=== PATIENT | female | born 1985 | race Two or more races ===

== ENCOUNTER 2019-04-09 12:40 | Emergency (ER) | payer SELFPAY ==
[~2019-04-09] VITALS: Ht 162.6 cm; Wt 86.2 kg
[2019-04-09 14:05] VITALS: BP 124/68
--- NOTE | 2019-04-09 14:13 | PHYS DOC ---
Past Medical History Past Medical History: No Pertinent History Past Surgical History: No Surgical History Alcohol Use: Occasionally Drug Use: None Adult General Chief Complaint Chief Complaint: ABDOMINAL PAIN IN HPI HPI Patient is a 33 year old female who presents with abdominal pain, nausea, vomiting this been ongoing since yesterday. The patient states she's level weeks . She states her pain 7 out of 10 in severity and sharp. Denies any vaginal bleeding. [id number] Review of Systems Review of Systems Constitutional: Denies fever or chills [] Eyes: Denies change in visual acuity, redness, or eye pain [] HENT: Denies nasal congestion or sore throat [] Respiratory: Denies cough or shortness of breath [] Cardiovascular: No additional information not addressed in HPI [] GI: Reports abdominal pain, nausea, Denies vomiting, bloody stools or diarrhea [] : Denies dysuria or hematuria [] Musculoskeletal: Denies back pain or joint pain [] Integument: Denies rash or skin lesions [] Neurologic: Denies headache, focal weakness or sensory changes [] Endocrine: Denies polyuria or polydipsia [] Complete systems were reviewed and found to be within normal limits, except as documented in this note. Current Medications Current Medications Current Medications Medications (Trade) Dose Ordered Sig/Darline Start Time Stop Time Status Last Admin Dose Admin Ondansetron HCl (Zofran) 4 mg 1X ONCE 04/09/19 14:15 04/09/19 14:16 DC 04/09/19 14:45 4 MG Sodium Chloride 1,000 ml @ 1,000 mls/hr 1X ONCE 04/09/19 14:15 04/09/19 15:14 DC 04/09/19 14:45 1,000 MLS/HR Allergies Allergies Allergies Coded Allergies Type Severity Reaction Last Updated Verified No Known Drug Allergies 10/13/13 No Physical Exam Physical Exam Constitutional: Well developed, well nourished, no acute distress, non-toxic appearance. [] HENT: Normocephalic, atraumatic, bilateral external ears normal, oropharynx moist, no oral exudates, nose normal. [] Eyes: PERRLA, EOMI, conjunctiva normal, no discharge. [] Neck: Normal range of motion, no tenderness, supple, no stridor. [] Cardiovascular:Heart rate regular rhythm, no murmur [] Lungs & Thorax: Bilateral breath sounds clear to auscultation [] Abdomen: Bowel sounds normal, soft, periumbilical abdominal tenderness, no masses, no pulsatile masses. [] Skin: Warm, dry, no erythema, no rash. [] Back: No tenderness, no CVA tenderness. [] Extremities: No tenderness, no cyanosis, no clubbing, ROM intact, no edema. [] Neurologic: Alert and oriented X 3, normal motor function, normal sensory function, no focal deficits noted. [] Psychologic: Affect normal, judgement normal, mood normal. [] Current Patient Data Lab Values Laboratory Tests Test 04/09/19 14:02 04/09/19 14:15 Urine Collection Type Unknown Urine Color Yellow Urine Clarity Clear Urine pH 6.5 Urine Specific [place] 1.010 Urine Protein Negative mg/dL (NEG-TRACE) Urine Glucose (UA) Negative mg/dL (NEG) Urine Ketones (Stick) Negative mg/dL (NEG) Urine Blood Negative (NEG) Urine Nitrite Negative (NEG) Urine Bilirubin Negative (NEG) Urine Urobilinogen Dipstick 0.2 mg/dL (0.2 mg/dL) Urine Leukocyte Esterase Small (NEG) Urine RBC 0 /HPF (0-2) Urine WBC 1-4 /HPF (0-4) Urine Squamous Epithelial Cells Many /LPF Urine Bacteria Moderate /HPF (0-FEW) Urine Mucus Mod /LPF Urine Trichomonas Present White Blood Count 9.4 x10^3/uL (4.0-11.0) Red Blood Count 4.03 x10^6/uL (3.50-5.40) Hemoglobin 13.0 g/dL (12.0-15.5) Hematocrit 37.5 % (36.0-47.0) Mean Corpuscular Volume 93 fL (79-100) Mean Corpuscular Hemoglobin 32 pg (25-35) Mean Corpuscular Hemoglobin Concent 35 g/dL (31-37) Red Cell Distribution Width 12.7 % (11.5-14.5) Platelet Count 268 x10^3/uL (140-400) Neutrophils (%) (Auto) 70 % (31-73) Lymphocytes (%) (Auto) 22 % (24-48) L Monocytes (%) (Auto) 6 % (0-9) Eosinophils (%) (Auto) 1 % (0-3) Basophils (%) (Auto) 1 % (0-3) Neutrophils # (Auto) 6.6 x10^3/uL (1.8-7.7) Lymphocytes # (Auto) 2.1 x10^3/uL (1.0-4.8) Monocytes # (Auto) 0.5 x10^3/uL (0.0-1.1) Eosinophils # (Auto) 0.1 x10^3/uL (0.0-0.7) Basophils # (Auto) 0.1 x10^3/uL (0.0-0.2) Maternal Serum HCG Beta Subunit 24116 mIU/mL (0-5) H Sodium Level 138 mmol/L (136-145) Potassium Level 3.9 mmol/L (3.5-5.1) Chloride Level 102 mmol/L (98-107) Carbon Dioxide Level 25 mmol/L (21-32) Anion Gap 11 (6-14) Blood Urea Nitrogen 5 mg/dL (7-20) L Creatinine 0.6 mg/dL (0.6-1.0) Estimated GFR (Cockcroft-Gault) 114.4 BUN/Creatinine Ratio 8 (6-20) Glucose Level 90 mg/dL (70-99) Calcium Level 8.9 mg/dL (8.5-10.1) Total Bilirubin 0.2 mg/dL (0.2-1.0) Aspartate Amino Transferase (AST) 13 U/L (15-37) L Alanine Aminotransferase (ALT) 18 U/L (14-59) Alkaline Phosphatase 58 U/L (46-116) Total Protein 7.4 g/dL (6.4-8.2) Albumin 3.7 g/dL (3.4-5.0) Albumin/Globulin Ratio 1.0 (1.0-1.7) Laboratory Tests 04/09/19 14:15 Laboratory Tests 04/09/19 14:15 EKG EKG [] Radiology/Procedures Radiology/Procedures [][facility] [address] [place], [place] [id number] IMAGING REPORT Signed PATIENT: KAYLA KENDRICK ACCOUNT: [id number] : 1985 LOCATION: ER AGE: 33 SEX: F EXAM STATUS: REG ER ORD. PHYSICIAN: KLEVER DEAN APRN REASON: abdominal pain, 11 weeks preg PROCEDURE: OB < 14 WKS EXAM: Obstetrics sonogram. HISTORY: Pain. TECHNIQUE: Sonographic imaging of the pelvis was performed. COMPARISON: None. FINDINGS: There is a single intrauterine gestational sac with pole and yolk sac. The crown-rump length is 1.07 cm, corresponding with a gestational age of 7 weeks and 1 day and due date is 11/25/2019. The heart rate is normal at 158 bpm. The cervix is long and closed. The uterus is normal in size. The ovaries are unremarkable. No pelvic free fluid is seen. The gestational sac is normal in configuration and location. The anatomic fluid volume is grossly normal. IMPRESSION: Single intrauterine fetus with an estimated gestational age of 7 weeks and 1 day and heart rate of 158 bpm. Electronically signed by: Ursula Worthington MD (04/09/2019 2:56 PM) [facility] DICTATED and SIGNED BY: URSULA WORTHINGTON MD DATE: 04/09/19 1456 Course & Med Decision Making Course & Med Decision Making Pertinent Labs and Imaging studies reviewed. (See chart for details) Will get labs, ultrasound, and give supportive care. Labs are unremarkable. Urine shows leukocytes will treat with keflex. IMPRESSION: Single intrauterine fetus with an estimated gestational age of 7 weeks and 1 day and heart rate of 158 bpm. Dragon Disclaimer Dragon Disclaimer This electronic medical record was generated, in whole or in part, using a voice recognition dictation system. Departure Departure Impression: Primary Impression: Urinary tract infection Disposition: 01 HOME, SELF-CARE Condition: STABLE Referrals: NO PCP (PCP) Patient Instructions: - Urinary Tract Infection Additional Instructions: Thank you for visiting [facility]. We appreciate you trusting us with your care. If any additional problems come up don't hesitate to return to visit us. Please follow up with your primary care provider so they can plan additional care if needed and know about the problem that you had. If symptoms worsen come back to the Emergency Department. Any concerning symptoms that start such as chest pain, shortness of air, weakness or numbness on one side of the body, running high fevers or any other concerning symptoms return to the ER. You have been prescribed an antibiotic today to help fight your infection. Pl ease take all of the antibiotic as directed. If after 48 hours the infection is not improving, please return for more care. If the infection worsens, return to ER for additional care. Scripts Cephalexin (KEFLEX) 500 Mg Capsule 1 CAP PO BID for 7 Days, #14 CAP 0 Refills Prov: KLEVER DEAN APRN 04/09/19 Problem Qualifiers Primary Impression: Urinary tract infection Urinary tract infection type: acute cystitis Hematuria presence: without hematuria Qualified Codes: N30.00 - Acute cystitis without hematuria KLEVER DEAN APRN Apr 09, 2019 14:13
[2019-04-09 14:15] LABS: BILIRUBIN,URINE NEGATIVE (NEG); CLARITY,URINE CLEAR; COLOR,URINE YELLOW; NITRITE,URINE NEGATIVE (NEG); PH,URINE 6.5; PROTEIN,URINE NEGATIVE (NEG-TRACE); UROBILINOGEN,URINE 0.2 mg/dL (0.2 mg/dL)
[2019-04-09] MEDS ORDERED: IV NORMAL SALINE 1000ML BAG 1,000 ML IV ONE (14:15)
[2019-04-09] MEDS ORDERED: ONDANSETRON PF 4 MG/2 ML VIAL. IV ONE (14:15)
[2019-04-09 14:25] LABS: BASO # 0.1 x10^3/uL (0.0-0.2); BASO % 1 % (0-3); EOS # 0.1 x10^3/uL (0.0-0.7); EOS % 1 % (0-3); HEMATOCRIT 37.5 % (36.0-47.0); LYMPH # 2.1 x10^3/uL (1.0-4.8); LYMPH % 22 % (24-48); MEAN CORPUSCULAR HEMOGLOBIN 32 pg (25-35); MEAN CORPUSCULAR HGB CONC 35 g/dL (31-37); MEAN CORPUSCULAR VOLUME 93 fL (79-100); MONO # 0.5 x10^3/uL (0.0-1.1); MONO % 6 % (0-9); NEUT # 6.6 x10^3/uL (1.8-7.7); NEUT % 70 % (31-73); PLATELET COUNT 268 x10^3/uL (140-400); RED BLOOD COUNT 4.03 x10^6/uL (3.50-5.40); RED CELL DISTRIBUTION WIDTH 12.7 % (11.5-14.5); WHITE BLOOD COUNT 9.4 x10^3/uL (4.0-11.0)
[2019-04-09 14:41] LABS: BACTERIA,URINE MODERATE /HPF (0-FEW); RBC,URINE 0 /HPF (0-2); SQUAMOUS EPITHELIAL CELL,UR MANY /LPF; TRICHOMONAS,URINE PRESENT
[2019-04-09 14:43] LABS: CALCIUM 8.9 mg/dL (8.5-10.1); CREATININE 0.6 mg/dL (0.6-1.0); GFR 114.4; POTASSIUM 3.9 mmol/L (3.5-5.1)
[2019-04-09 14:48] LABS: ALBUMIN 3.7 g/dL (3.4-5.0); TOTAL BILIRUBIN 0.2 mg/dL (0.2-1.0); TOTAL PROTEIN 7.4 g/dL (6.4-8.2)
--- NOTE | 2019-04-09 14:59 | RAD ---
EXAM: Obstetrics sonogram. HISTORY: Pain. TECHNIQUE: Sonographic imaging of the pelvis was performed. COMPARISON: None. FINDINGS: There is a single intrauterine gestational sac with pole and yolk sac. The crown-rump length is 1.07 cm, corresponding with a gestational age of 7 weeks and 1 day and due date is 11/25/2019. The heart rate is normal at 158 bpm. The cervix is long and closed. The uterus is normal in size. The ovaries are unremarkable. No pelvic free fluid is seen. The gestational sac is normal in configuration and location. The anatomic fluid volume is grossly normal. IMPRESSION: Single intrauterine fetus with an estimated gestational age of 7 weeks and 1 day and heart rate of 158 bpm. Electronically signed by: Ursula Paredes MD (04/09/2019 2:56 PM) [facility]
[2019-04-09] MEDS ORDERED: CEPH-264 PO (15:22)
== END 2019-04-09 15:36 | disposition home or self-care (01) ==
LOC: ER 12:40
DX: O23.11 Infections of bladder in pregnancy, first trimester (principal); O21.9 Vomiting of pregnancy, unspecified; Z3A.11 11 weeks gestation of pregnancy
CPT/HCPCS: 36415; 76801; 80053; 81001; 84702; 85025; 86900; 86901; 87086; 96361; 96374; 99285; J2405; J7030

== ENCOUNTER 2019-09-18 17:42 | Observation (INO) | payer OTHER ==
[2019-05-18 03:25] VITALS: BP 148/81
[~2019-09-18 17:42] MED LIST: CEPH-264 PO
[2019-09-18] MEDS ORDERED: IV RINGERS,LACTATED 1000ML 1,000 ML IV SCH (17:43)
== END 2019-09-18 19:00 | disposition home or self-care (01) ==
LOC: 3 SO LND 17:42
PROVIDERS: ADMIT Obstetrics & Gynecology; ATTEND Obstetrics & Gynecology
DX: O9A.213 Injury, poisoning and certain other consequences of external causes complicating pregnancy, third trimester (principal); O26.893 Other specified pregnancy related conditions, third trimester; N64.4 Mastodynia; R10.9 Unspecified abdominal pain; Z3A.31 31 weeks gestation of pregnancy; W10.8XXA Fall (on) (from) other stairs and steps, initial encounter; Y93.89 Activity, other specified; Y92.89 Other specified places as the place of occurrence of the external cause; Y99.8 Other external cause status
CPT/HCPCS: G0378; G0379

== ENCOUNTER 2019-10-19 07:51 | Inpatient (IN) | payer OTHER ==
[~2019-10-19] VITALS: Ht 162.6 cm; Wt 108.9 kg
[2019-10-19] MEDS ORDERED: BETAMET ACET&NA PHOS 30 MG/5 ML VIAL. IM STA (08:17)
[2019-10-19] MEDS ORDERED: IV NORMAL SALINE 1000ML BAG 1,000 ML IV SCH ×2 (08:17)
[2019-10-19] MEDS ORDERED: IV RINGERS,LACTATED 1000ML 1,000 ML IV SCH (08:17)
[2019-10-19 08:39] LABS: RED BLOOD COUNT 3.56 x10^6/uL (3.50-5.40); RED CELL DISTRIBUTION WIDTH 14.5 % (11.5-14.5); WHITE BLOOD COUNT 8.6 x10^3/uL (4.0-11.0)
--- NOTE | 2019-10-19 09:36 | PDOC1 ---
OB - History Hx of Present Care: Good Care Ultrasounds: Abnormal US findings (placenta previa) Obstetrical Complications: Other (placenta previa) Medical Complications: None Past Family/Social History * Past Medical, Surgical, Family and Obstetric Histories reviewed from chart. Rubella: Immune RPR/VDRL: Negative GBS Status: Unknown HBsAG: Negative OB - Chief Complaint & HPI Date of Admission: Date of Admission: Oct 19, 2019 at 07:51 Chief Complaint/History : 3 Para: 1 EGA: 35 Reason for admission: active labor, vaginal bleeding (placenta previa) Admission Nurse Assessment Rev: Yes OB - Admission Exam Physical Exam HEENT: Normal Heart: Regular Rate Lungs: Clear Abdomen: Gravid, Non tender, Soft Extremities: Edema Reflexes: Normal Membranes: Intact Accelerations: Accelerations Present Decelerations: No decelerations Contractions on Admission: >10 Minutes Apart Intensity: Mild Text A: 35 wks IUP Placenta Previa Vaginal bleeding P: Admit for emergency c/s. Give Betamethasone for lung maturity. Type and cross 2 Units PRBC's. JESSICA MASON Jr, MD Oct 19, 2019 09:36
[2019-10-19 09:41] LABS: BILIRUBIN,URINE NEGATIVE (NEG); NITRITE,URINE NEGATIVE (NEG); PROTEIN,URINE 30 mg/dL (NEG-TRACE); UROBILINOGEN,URINE 0.2 mg/dL (0.2 mg/dL)
[2019-10-19 09:54] LABS: BACTERIA,URINE FEW /HPF (0-FEW); RBC,URINE >40 /HPF (0-2); SQUAMOUS EPITHELIAL CELL,UR OCC /LPF
[2019-10-19 09:56] LABS: CLARITY,URINE CLOUDY; COLOR,URINE AMBER
[2019-10-19] MEDS ORDERED: CITRIC ACID/SODIUM CITRATE 30 ML SOLUTION. PO ONE (10:00)
[2019-10-19] MEDS ORDERED: FAMOTIDINE 20 MG/2 ML VIAL ONE (10:12)
[2019-10-19] MEDS ORDERED: fentaNYL PF VIAL 100 MCG/2 ML VIAL ONE (10:12)
[2019-10-19] MEDS ORDERED: MORPHINE PF 10 MG/10 ML AMPUL. ONE (10:12)
[2019-10-19] MEDS ORDERED: ONDANSETRON PF 4 MG/2 ML VIAL. ONE (10:12)
[2019-10-19] MEDS ORDERED: METOCLOPRAMIDE HCL 10 MG/2 ML VIAL. ONE ×2 (10:12→11:11)
[2019-10-19] MEDS ORDERED: OXYTOCIN 10 UNIT/ML VIAL. ONE (10:58)
--- NOTE | 2019-10-19 11:38 | PDOC4 ---
OB Operative Note Date: Oct 19, 2019 PRE OP DIAGNOSIS: Other (Placenta previa) POST OP DIAGNOSIS: Other (Same) OPERATION PERFORMED: L [facility] Surgeon Dr. Cannon Anesthesia: Regional (Spinal) Blood Loss 700 ml Specimen placenta and infant OB Findings: Position (Vertex), Sex (Female), (8/9), Weight (2675 Gram) Complications none Additional Remarks pt. JESSICA Mi Jr, MD Oct 19, 2019 11:38
[2019-10-19] MEDS ORDERED: MAG HYDROX/ALUMINUM HYD/SIMETH 30 ML ORAL.SUSP PO PRN (11:45)
[2019-10-19] MEDS ORDERED: 0.9 % SODIUM CHLORIDE 10 ML DISP.SYRIN. IV PRN (11:45)
[2019-10-19] MEDS ORDERED: OXYTOCIN 30 UNIT/500 ML PREMIX 500 ML IV PRN (11:45)
[2019-10-19] MEDS ORDERED: ONDANSETRON PF 4 MG/2 ML VIAL. IV PRN (11:45)
[2019-10-19] MEDS ORDERED: ZOLPIDEM 5 MG TABLET. PO PRN (11:45)
[2019-10-19] MEDS ORDERED: SIMETHICONE 80 MG TAB.CHEW PO PRN (11:45)
[2019-10-19] MEDS ORDERED: diphenhydrAMINE ORAL ELIXIR 12.5 MG/5 ML ML PO PRN (11:45)
--- NOTE | 2019-10-19 12:27 | OP ---
DATE OF SURGERY: 10/19/2019 PREOPERATIVE DIAGNOSES: 1. A 35 and 4/7 weeks intrauterine . 2. Placenta previa with vaginal bleeding. POSTOPERATIVE DIAGNOSES: 1. A 35 and 4/7 weeks intrauterine . 2. Placenta previa with vaginal bleeding. PROCEDURE: Primary low transverse section. SURGEON: Jessica Cannon MD ANESTHESIA: Spinal. ESTIMATED BLOOD LOSS: 700 mL. COMPLICATIONS: None. FINDINGS: Viable female , Apgars 8 and 9, weight 2675 grams. Three-vessel cord placenta delivered manually. SUMMARY: A 34-year-old 3, para 1 at 35 and 4/7 weeks intrauterine , presented to Labor and Delivery with vaginal bleeding with known placenta previa. The patient was counseled on risks, benefits and expectations of section and voiced clear understanding to proceed. DESCRIPTION OF PROCEDURE: The patient was taken to surgery suite and placed in dorsal supine position. She was prepped with ChloraPrep and draped in sterile fashion. After adequate anesthesia, Pfannenstiel skin incision was made with scalpel down to and through the fascia. The fascia was extended laterally using curved Strauss scissors. The superior edge of fascia was grasped with two Dianna clamps and dissected free of the abdominal rectus muscles using blunt dissection along with Bovie cautery. The same process took place inferiorly. Abdominal rectus muscle dissected bluntly at the midline. Peritoneum was grasped with 2 hemostats and entered sharply with Metzenbaum scissors. This incision was extended superiorly as well as inferiorly. The Mike ring retractor was then placed. Low transverse hysterotomy incision was made with a scalpel down to the amniotic sac. Hysterotomy incision was extended laterally and superiorly digitally. Amniotomy was performed with Allis clamp, which elicited moderate amount of clear fluid. With the aid of fundal pressure, the 's head was delivered in a smooth atraumatic manner. With additional fundal pressure, the anterior shoulder delivered followed by posterior shoulder and rest of the female infant was delivered. Infant was then suctioned with bulb syringe orally and nasally, umbilical cord blood was then obtained. Three-vessel cord placenta was delivered manually. The uterus was then exteriorized and cleared of clot and debris with a moist lap. The hysterotomy incision was reapproximated using #1 Vicryl suture in running locked fashion. Mcnika-dc-[id number] sutures were placed on the left apex of the hysterotomy incision for better hemostasis. Uterus palpated firm. Fallopian tubes and ovaries appeared normal bilaterally. Posterior cul-de-sac was cleared of clot and debris with moist lap. The uterus was then returned to the abdomen. The pericolic gutters were cleared of clot and debris with moist lap. Hysterotomy incision was reviewed and was hemostatic. The Mike ring retractor was removed. The peritoneum was reapproximated using #1 Vicryl suture in running fashion. The abdominal rectus muscle was reapproximated using #1 Vicryl suture in running fashion. The fascia was reapproximated using 0 Vicryl suture in running fashion. Skin was reapproximated using 4-0 Vicryl suture in subcuticular manner. The patient tolerated the procedure well and was taken to recovery room in stable condition. Sponge and needle count correct x 3. JESSICA CANNON MD DR: JAYME/jose JOB#: [id number] / [id number]
[2019-10-19 14:05] VITALS: BP 130/82
[2019-10-19 14:15] VITALS: BP 129/73
[2019-10-19 14:30] VITALS: BP 134/65
[2019-10-19 15:00] VITALS: BP 132/66
[2019-10-19] MEDS: KETOROLAC 30 MG/ML VIAL. IV PRN (16:53)
[2019-10-19 17:00] VITALS: BP 113/62
[2019-10-19] MEDS: IV RINGERS,LACTATED 1000ML 1,000 ML IV SCH (17:22)
[2019-10-19] MEDS: GABAPENTIN 400 MG CAPSULE. PO SCH ×2 (21:00→22:16)
[2019-10-19 22:08] VITALS: BP 96/47
[2019-10-20] MEDS: IV RINGERS,LACTATED 1000ML 1,000 ML IV SCH (00:33)
[2019-10-20] MEDS: KETOROLAC 30 MG/ML VIAL. IV PRN ×2 (00:43→06:45)
[2019-10-20 02:15] VITALS: BP 119/51
[2019-10-20 05:54] LABS: BASO % 0 % (0-3); EOS % 0 % (0-3); HEMATOCRIT 26.6 % (36.0-47.0); LYMPH # 1.8 x10^3/uL (1.0-4.8); LYMPH % 15 % (24-48); MEAN CORPUSCULAR HEMOGLOBIN 31 pg (25-35); MEAN CORPUSCULAR HGB CONC 34 g/dL (31-37); MEAN CORPUSCULAR VOLUME 90 fL (79-100); MONO # 0.7 x10^3/uL (0.0-1.1); MONO % 6 % (0-9); NEUT # 9.3 x10^3/uL (1.8-7.7); NEUT % 79 % (31-73); PLATELET COUNT 188 x10^3/uL (140-400); RED BLOOD COUNT 2.94 x10^6/uL (3.50-5.40); RED CELL DISTRIBUTION WIDTH 14.3 % (11.5-14.5); WHITE BLOOD COUNT 11.8 x10^3/uL (4.0-11.0)
[2019-10-20 06:41] VITALS: BP 108/61
[2019-10-20] MEDS: MULTIVITAMIN with MINERAL TABLET. PO SCH (08:30)
[2019-10-20] MEDS: FERROUS SULFATE 325 MG TABLET. PO SCH ×2 (08:30→17:27)
[2019-10-20] MEDS: GABAPENTIN 400 MG CAPSULE. PO SCH ×3 (08:30→21:10)
[2019-10-20 11:00] VITALS: BP 103/50
--- NOTE | 2019-10-20 11:51 | PDOC ---
OB Progress Note Date of Service 10/20/19 Time of Evaluation 1150 Notes Pt. feeling well. Pain moderately controlled. Lab Laboratory Tests Test 10/19/19 08:25 10/19/19 09:15 10/20/19 04:45 White Blood Count 8.6 x10^3/uL (4.0-11.0) 11.8 x10^3/uL (4.0-11.0) Red Blood Count 3.56 x10^6/uL (3.50-5.40) 2.94 x10^6/uL (3.50-5.40) Hemoglobin 11.0 g/dL (12.0-15.5) 9.0 g/dL (12.0-15.5) Hematocrit 32.0 % (36.0-47.0) 26.6 % (36.0-47.0) Mean Corpuscular Volume 90 fL (79-100) 90 fL (79-100) Mean Corpuscular Hemoglobin 31 pg (25-35) 31 pg (25-35) Mean Corpuscular Hemoglobin Concent 34 g/dL (31-37) 34 g/dL (31-37) Red Cell Distribution Width 14.5 % (11.5-14.5) 14.3 % (11.5-14.5) Platelet Count 224 x10^3/uL (140-400) 188 x10^3/uL (140-400) Urine Collection Type Unknown Urine Color [place] Urine Clarity Cloudy Urine pH 7.0 (<5.0-8.0) Urine Specific Given 1.020 (1.000-1.030) Urine Protein 30 mg/dL (NEG-TRACE) Urine Glucose (UA) Negative mg/dL (NEG) Urine Ketones (Stick) Negative mg/dL (NEG) Urine Blood Large (NEG) Urine Nitrite Negative (NEG) Urine Bilirubin Negative (NEG) Urine Urobilinogen Dipstick 0.2 mg/dL (0.2 mg/dL) Urine Leukocyte Esterase Negative (NEG) Urine RBC >40 /HPF (0-2) Urine WBC 1-4 /HPF (0-4) Urine Squamous Epithelial Cells Occ /LPF Urine Bacteria Few /HPF (0-FEW) Neutrophils (%) (Auto) 79 % (31-73) Lymphocytes (%) (Auto) 15 % (24-48) Monocytes (%) (Auto) 6 % (0-9) Eosinophils (%) (Auto) 0 % (0-3) Basophils (%) (Auto) 0 % (0-3) Neutrophils # (Auto) 9.3 x10^3/uL (1.8-7.7) Lymphocytes # (Auto) 1.8 x10^3/uL (1.0-4.8) Monocytes # (Auto) 0.7 x10^3/uL (0.0-1.1) Eosinophils # (Auto) 0.0 x10^3/uL (0.0-0.7) Basophils # (Auto) 0.0 x10^3/uL (0.0-0.2) Laboratory Tests Test 10/20/19 04:45 White Blood Count 11.8 x10^3/uL (4.0-11.0) Red Blood Count 2.94 x10^6/uL (3.50-5.40) Hemoglobin 9.0 g/dL (12.0-15.5) Hematocrit 26.6 % (36.0-47.0) Mean Corpuscular Volume 90 fL (79-100) Mean Corpuscular Hemoglobin 31 pg (25-35) Mean Corpuscular Hemoglobin Concent 34 g/dL (31-37) Red Cell Distribution Width 14.3 % (11.5-14.5) Platelet Count 188 x10^3/uL (140-400) Neutrophils (%) (Auto) 79 % (31-73) Lymphocytes (%) (Auto) 15 % (24-48) Monocytes (%) (Auto) 6 % (0-9) Eosinophils (%) (Auto) 0 % (0-3) Basophils (%) (Auto) 0 % (0-3) Neutrophils # (Auto) 9.3 x10^3/uL (1.8-7.7) Lymphocytes # (Auto) 1.8 x10^3/uL (1.0-4.8) Monocytes # (Auto) 0.7 x10^3/uL (0.0-1.1) Eosinophils # (Auto) 0.0 x10^3/uL (0.0-0.7) Basophils # (Auto) 0.0 x10^3/uL (0.0-0.2) Medications Current Medications Ringer's Solution 1,000 ml @ 1,000 mls/hr Q1H IV Last administered on 10/19/19at 10:12; Start 10/19/19 at 08:17; Stop 10/19/19 at 09:16; Status DC Sodium Chloride 1,000 ml @ 1,000 mls/hr Q1H IV ; Start 10/19/19 at 08:17; Stop 10/19/19 at 09:16; Status DC Ringer's Solution 1,000 ml @ 125 mls/hr Q8H IV Last administered on 10/20/19at 00:33; Start 10/19/19 at 08:17 Sodium Chloride 1,000 ml @ 125 mls/hr Q8H IV ; Start 10/19/19 at 08:17 Cefazolin Sodium/ Dextrose 50 ml @ 100 mls/hr 1X ONCE IV ; Start 10/19/19 at 08:30; Stop 10/19/19 at 08:59; Status DC Betamethasone Sodium Phosphate (Celestone Soluspan) 12 mg 1X STAT IM Last administered on 10/19/19at 08:56; Start 10/19/19 at 08:17; Stop 10/19/19 at 08:25; Status DC Citric Acid/ Sodium Citrate (Bicitra) 30 ml 1X ONCE PO Last administered on 10/19/19at 10:38; Start 10/19/19 at 10:00; Stop 10/19/19 at 10:01; Status DC Famotidine (Pepcid Vial) 20 mg STK-MED ONCE .ROUTE ; Start 10/19/19 at 10:12; Stop 10/19/19 at 10:12; Status DC Metoclopramide HCl (Reglan Vial) 10 mg STK-MED ONCE .ROUTE ; Start 10/19/19 at 10:12; Stop 10/19/19 at 10:12; Status DC Ondansetron HCl (Zofran) 4 mg STK-MED ONCE .ROUTE ; Start 10/19/19 at 10:12; Stop 10/19/19 at 10:12; Status DC Morphine Sulfate (Morphine Preservative Free) 10 mg STK-MED ONCE .ROUTE ; Start 10/19/19 at 10:12; Stop 10/19/19 at 10:13; Status DC Fentanyl Citrate (Fentanyl 2ml Vial) 100 mcg STK-MED ONCE .ROUTE ; Start 10/19/19 at 10:12; Stop 10/19/19 at 10:13; Status DC Oxytocin (Pitocin) 10 unit STK-MED ONCE .ROUTE ; Start 10/19/19 at 10:58; Stop 10/19/19 at 10:59; Status DC Metoclopramide HCl (Reglan Vial) 10 mg STK-MED ONCE .ROUTE ; Start 10/19/19 at 11:11; Stop 10/19/19 at 11:12; Status DC Sodium Chloride (Normal Saline Flush) 3 ml QSHIFT PRN IV AFTER MEDS AND BLOOD DRAWS; Start 10/19/19 at 11:45 Oxytocin/Sodium Chloride 500 ml @ 125 mls/hr CONT PRN IV EXCESSIVE POST- BLEEDING; Start 10/19/19 at 11:45; Stop 10/19/19 at 19:44; Status DC Ibuprofen (Motrin) 800 mg PRN Q8HRS PRN PO INFLAMMATION; Start 10/19/19 at 11:45 Ondansetron HCl (Zofran) 4 mg PRN Q6HRS PRN IV NAUSEA/VOMITING; Start 10/19/19 at 11:45 Docusate Sodium (Colace) 100 mg PRN BID PRN PO HARD STOOL; Start 10/19/19 at 11:45 Al Hydroxide/Mg Hydroxide (Mylanta Plus Xs) 30 ml PRN Q4HRS PRN PO HEARTBURN / GAS; Start 10/19/19 at 11:45 Simethicone (Gas-X) 80 mg PRN AFTMEALHC PRN PO GAS / BLOATING; Start 10/19/19 at 11:45 Diphenhydramine HCl (Benadryl Oral Elixir) 12.5 mg PRN Q6HRS PRN PO ITCHING; Start 10/19/19 at 11:45 Ferrous Sulfate (Feosol) 325 mg BIDWMEALS PO Last administered on 10/20/19at 08:30; Start 10/19/19 at 17:00 Zolpidem Tartrate (Ambien) 5 mg PRN QHS PRN PO INSOMNIA, MAY REPEAT X1; Start 10/19/19 at 11:45 Ketorolac Tromethamine (Toradol 30mg Vial) 30 mg PRN Q6HRS PRN IV PAIN Last administered on 10/20/19at 06:45; Start 10/19/19 at 11:45; Stop 10/24/19 at 11:44 Multivitamins (Thera M Plus) 1 tab DAILY PO Last administered on 10/20/19at 08:30; Start 10/20/19 at 09:00 Gabapentin (Neurontin) 400 mg TID PO Last administered on 10/20/19at 08:30; Start 10/19/19 at 14:00 Active Scripts Active Keflex (Cephalexin) 500 Mg Capsule 1 Cap PO BID 7 Days Exam Abd: soft, mild tenderness, fundus firm Incision site: clean, dry and intact Assessment POD#1 s/p c/s Plan of Care: Continue current Tx, Mgmt JESSICA MASON Jr, MD Oct 20, 2019 11:51
[2019-10-20] MEDS: IBUPROFEN 400 MG TABLET. PO PRN ×2 (15:05→21:10)
[2019-10-20 18:15] VITALS: BP 137/84
[2019-10-20 21:10] VITALS: BP 135/81
[2019-10-21] MEDS: IBUPROFEN 400 MG TABLET. PO PRN ×2 (06:08→18:01)
[2019-10-21 06:10] VITALS: BP_SYST 103; BP_SYST 107; BP_DIAS 56; BP_DIAS 67
[2019-10-21] MEDS: DOCUSATE SODIUM 100 MG CAPSULE. PO PRN ×2 (08:34→19:14)
[2019-10-21] MEDS: GABAPENTIN 400 MG CAPSULE. PO SCH ×3 (08:34→21:07)
[2019-10-21] MEDS: FERROUS SULFATE 325 MG TABLET. PO SCH ×2 (08:34→18:01)
[2019-10-21] MEDS: MULTIVITAMIN with MINERAL TABLET. PO SCH (08:34)
[2019-10-21 11:15] VITALS: BP 115/76
[2019-10-21] MEDS: ACETAMINOPHEN 500 MG TABLET PO PRN ×2 (11:38→19:14)
--- NOTE | 2019-10-21 13:49 | PDOC ---
OB Progress Note Date of Service 10/21/19 Time of Evaluation 1345 Notes Pt. feeling well. No complaints. Lab Laboratory Tests Test 10/20/19 04:45 White Blood Count 11.8 x10^3/uL (4.0-11.0) Red Blood Count 2.94 x10^6/uL (3.50-5.40) Hemoglobin 9.0 g/dL (12.0-15.5) Hematocrit 26.6 % (36.0-47.0) Mean Corpuscular Volume 90 fL (79-100) Mean Corpuscular Hemoglobin 31 pg (25-35) Mean Corpuscular Hemoglobin Concent 34 g/dL (31-37) Red Cell Distribution Width 14.3 % (11.5-14.5) Platelet Count 188 x10^3/uL (140-400) Neutrophils (%) (Auto) 79 % (31-73) Lymphocytes (%) (Auto) 15 % (24-48) Monocytes (%) (Auto) 6 % (0-9) Eosinophils (%) (Auto) 0 % (0-3) Basophils (%) (Auto) 0 % (0-3) Neutrophils # (Auto) 9.3 x10^3/uL (1.8-7.7) Lymphocytes # (Auto) 1.8 x10^3/uL (1.0-4.8) Monocytes # (Auto) 0.7 x10^3/uL (0.0-1.1) Eosinophils # (Auto) 0.0 x10^3/uL (0.0-0.7) Basophils # (Auto) 0.0 x10^3/uL (0.0-0.2) Medications Current Medications Ringer's Solution 1,000 ml @ 1,000 mls/hr Q1H IV Last administered on 10/19/19at 10:12; Start 10/19/19 at 08:17; Stop 10/19/19 at 09:16; Status DC Sodium Chloride 1,000 ml @ 1,000 mls/hr Q1H IV ; Start 10/19/19 at 08:17; Stop 10/19/19 at 09:16; Status DC Ringer's Solution 1,000 ml @ 125 mls/hr Q8H IV Last administered on 10/20/19at 00:33; Start 10/19/19 at 08:17 Sodium Chloride 1,000 ml @ 125 mls/hr Q8H IV ; Start 10/19/19 at 08:17 Cefazolin Sodium/ Dextrose 50 ml @ 100 mls/hr 1X ONCE IV ; Start 10/19/19 at 08:30; Stop 10/19/19 at 08:59; Status DC Betamethasone Sodium Phosphate (Celestone Soluspan) 12 mg 1X STAT IM Last administered on 10/19/19at 08:56; Start 10/19/19 at 08:17; Stop 10/19/19 at 08:25; Status DC Citric Acid/ Sodium Citrate (Bicitra) 30 ml 1X ONCE PO Last administered on 10/19/19at 10:38; Start 10/19/19 at 10:00; Stop 10/19/19 at 10:01; Status DC Famotidine (Pepcid Vial) 20 mg STK-MED ONCE .ROUTE ; Start 10/19/19 at 10:12; Stop 10/19/19 at 10:12; Status DC Metoclopramide HCl (Reglan Vial) 10 mg STK-MED ONCE .ROUTE ; Start 10/19/19 at 10:12; Stop 10/19/19 at 10:12; Status DC Ondansetron HCl (Zofran) 4 mg STK-MED ONCE .ROUTE ; Start 10/19/19 at 10:12; St op 10/19/19 at 10:12; Status DC Morphine Sulfate (Morphine Preservative Free) 10 mg STK-MED ONCE .ROUTE ; Start 10/19/19 at 10:12; Stop 10/19/19 at 10:13; Status DC Fentanyl Citrate (Fentanyl 2ml Vial) 100 mcg STK-MED ONCE .ROUTE ; Start 10/19/19 at 10:12; Stop 10/19/19 at 10:13; Status DC Oxytocin (Pitocin) 10 unit STK-MED ONCE .ROUTE ; Start 10/19/19 at 10:58; Stop 10/19/19 at 10:59; Status DC Metoclopramide HCl (Reglan Vial) 10 mg STK-MED ONCE .ROUTE ; Start 10/19/19 at 11:11; Stop 10/19/19 at 11:12; Status DC Sodium Chloride (Normal Saline Flush) 3 ml QSHIFT PRN IV AFTER MEDS AND BLOOD DRAWS; Start 10/19/19 at 11:45 Oxytocin/Sodium Chloride 500 ml @ 125 mls/hr CONT PRN IV EXCESSIVE POST- BLEEDING; Start 10/19/19 at 11:45; Stop 10/19/19 at 19:44; Status DC Ibuprofen (Motrin) 800 mg PRN Q8HRS PRN PO INFLAMMATION Last administered on 10/21/19 06:08; Start 10/19/19 at 11:45 Ondansetron HCl (Zofran) 4 mg PRN Q6HRS PRN IV NAUSEA/VOMITING; Start 10/19/19 at 11:45 Docusate Sodium (Colace) 100 mg PRN BID PRN PO HARD STOOL Last administered on 10/21/19 08:34; Start 10/19/19 at 11:45 Al Hydroxide/Mg Hydroxide (Mylanta Plus Xs) 30 ml PRN Q4HRS PRN PO HEARTBURN / GAS; Start 10/19/19 at 11:45 Simethicone (Gas-X) 80 mg PRN AFTMEALHC PRN PO GAS / BLOATING; Start 10/19/19 at 11:45 Diphenhydramine HCl (Benadryl Oral Elixir) 12.5 mg PRN Q6HRS PRN PO ITCHING; Start 10/19/19 at 11:45 Ferrous Sulfate (Feosol) 325 mg BIDWMEALS PO Last administered on 10/21/19at 08:34; Start 10/19/19 at 17:00 Zolpidem Tartrate (Ambien) 5 mg PRN QHS PRN PO INSOMNIA, MAY REPEAT X1; Start 10/19/19 at 11:45 Ketorolac Tromethamine (Toradol 30mg Vial) 30 mg PRN Q6HRS PRN IV PAIN Last administered on 10/20/19at 06:45; Start 10/19/19 at 11:45; Stop 10/24/19 at 11:44 Multivitamins (Thera M Plus) 1 tab DAILY PO Last administered on 10/21/19at 08:34; Start 10/20/19 at 09:00 Gabapentin (Neurontin) 400 mg TID PO Last administered on 10/21/19at 08:34; Start 10/19/19 at 14:00 Acetaminophen (Tylenol) 1,000 mg PRN Q6HRS PRN PO MILD PAIN / TEMP > 100.3'F Last administered on 10/21/19at 11:38; Start 10/21/19 at 06:15 Active Scripts Active Keflex (Cephalexin) 500 Mg Capsule 1 Cap PO BID 7 Days Exam Abd: soft, non tender, fundus firm Incision site: CLean, dry and intact Assessment POD#2 s/p c/s Plan of Care: Continue current Tx, Mgmt JESSICA MASON Jr, MD Oct 21, 2019 13:49
[2019-10-21 18:08] VITALS: BP 134/75
[2019-10-21] MEDS: traMADol 50 MG TABLET PO PRN (19:27)
[2019-10-21 19:45] VITALS: BP 139/77
[2019-10-22] MEDS: ACETAMINOPHEN 500 MG TABLET PO PRN (01:58)
[2019-10-22] MEDS: IBUPROFEN 400 MG TABLET. PO PRN (01:58)
[2019-10-22 02:00] VITALS: BP 112/69
[2019-10-22] MEDS: FERROUS SULFATE 325 MG TABLET. PO SCH (10:40)
[2019-10-22] MEDS: DOCUSATE SODIUM 100 MG CAPSULE. PO PRN (10:40)
[2019-10-22] MEDS: GABAPENTIN 400 MG CAPSULE. PO SCH (10:40)
[2019-10-22] MEDS: traMADol 50 MG TABLET PO PRN (10:41)
[2019-10-22 11:20] VITALS: BP 124/70
--- NOTE | 2019-10-22 13:52 | PDOC3 ---
OB DISCHARGE SUMMARY DATE OF ADMISSION: 10/19/19 DATE OF DISCHARGE: 10/22/19 REASON FOR ADMISSION: Vaginal bleeding, section (placenta previa) INTRAPARTUM PROCEDURES: : Low Cerv Trans DISCHARGE DIAGNOSIS: Term Delivered DISCHARGE INFORMATION: Activity (ad rachelle), Diet (regular), Instructions (pelvic rest x 6 wks, no driving x 2 wks, no lifting > 20 lbs. x 6 wks) HOSPITAL COURSE gestation with placenta previa presented with vaginal bleeding that required section. JESSICA MASON Jr, MD Oct 22, 2019 13:52
[2019-10-22] MEDS ORDERED: DOCU-153 PO (13:54)
[2019-10-22] MEDS ORDERED: GABA-689 PO (13:54)
[2019-10-22] MEDS ORDERED: IBUP-1027 PO (13:54)
--- NOTE | 2019-10-22 13:54 | DISCH ---
DISCHARGE INSTRUCTIONS Condition on Discharge Condition on Discharge: Stable Activity After Discharge Activity Instructions for Disc: Activity as tolerated Lifting Instructions after Dis: No heavy lifting Driving Instructions after Dis: No driving for 2 weeks Diet after Discharge Diet after Discharge: Regular Contacting the DR[facility]ah[facility] after DC Call your doctor for: Concerns you may have Follow-Up Follow up with: Dr. Cannon in 2 wks JESSICA CANNON Jr, MD Oct 22, 2019 13:54
[2019-10-22] MEDS ORDERED: TRAM50TA PO (14:22)
[2019-10-22 15:58] VITALS: BP 121/74
[2019-10-22 16:09] VITALS: BP 121/74
--- NOTE | 2019-10-22 17:06 | PATHOLOGY ---
[facility] Accession Number: [id number] . 01 Material submitted: . placenta - PLACENTA . 01 Clinical history: . 35.4 weeks gestation; placenta previa . 02 Diagnosis: 325 gram late pre-term placenta of an estimated 35.4 weeks gestation with attached membranes and umbilical cord. - Small for estimated gestational age placenta (less than 10th percentile). ([facility] 10/22/2019 1655 Local . 02 Comment: There is no evidence of an acute chorioamnionitis. There are no infarcts. There are no specific histologic features associated with placenta previa. ([facility]) . 02 Electronically signed: . Alber Null MD, Pathologist NPI- [id number] . 01 Gross description: . The specimen is received in formalin, labeled "Tatum Grewal, placenta". Received is a lawton placenta with attached membranes and umbilical cord with a trimmed placental weight of 325 g and measuring 15.6 x 14.5 x 2.4 cm in greatest dimensions. The membranes are pink-sauceda and translucent in appearance, and the site of membrane rupture is at the placental margin. The surface is intact displaying a normal arborizing vasculature pattern. The trivascular umbilical cord measures 26.5 cm in length by up to 1.2 cm in diameter and inserts eccentrically, 2.7 cm from the closest placental margin. The umbilical cord is pale ryan in appearance with severe helical twisting. The maternal surface is complete displaying a small area of possible disruption measuring 2.1 x 1.5 cm; a slight amount of adherent blood coagulum is seen on the surface. Sectioning reveals pink-sauceda to red-brown cut surfaces with no grossly distinct nodules or lesions. The specimen is submitted representatively as follows: . A1 proximal umbilical cord and surface vessels A2 umbilical cord and membrane roll A3-A4 inbound call center representative sections of maternal surface, with a section through the disrupted area submitted in cassette A3. ([facility]; 10/21/2019) QAC/QAC 10/21/2019 1333 Local . 02 Pathologist provided ICD-10: Z3A.35, O44.03 . 02 CPT . 772114 Specimen Comment: A courtesy copy of this report has been sent to [phone] Specimen Comment: Report sent to Performed at: 01 [facility] [address] [facility] [address], [place] [id number] MD Brian Baird MD Phone: [phone] Performed at: 02 [facility] [address] [place] [id number] MD Alber Null MD Phone: [phone]
== END 2019-10-22 16:10 | disposition home or self-care (01) | DRG 786 ==
LOC: 3 SO LND 07:51 → 3 NORTH 14:25
PROVIDERS: ADMIT Obstetrics & Gynecology; ATTEND Obstetrics & Gynecology
PROC: 10D00Z1 Extraction of Products of Conception, Low, Open Approach (ICD-10-PCS; principal; 2019-10-19)
DX: O44.13 Complete placenta previa with hemorrhage, third trimester (principal); O60.14X0 Preterm labor third trimester with preterm delivery third trimester, not applicable or unspecified; Z37.0 Single live birth; Z3A.35 35 weeks gestation of pregnancy
CPT/HCPCS: 36415; 81001; 85025; 85027; 86850; 86900; 86901; 86920; J0702; J1885; J2274; J2405; J2590; J2765; J3010; J3490; J7120; G0378

== ENCOUNTER 2021-05-16 11:54 | Emergency (ER) | payer OTHER ==
[~2021-05-16] VITALS: Ht 162.6 cm; Wt 100.2 kg
[~2021-05-16 11:54] MED LIST changes: +DOCU-148 PO; +GABA-689 PO; +IBUP-1027 PO; +TRAM50TA PO
[2021-05-16] MEDS ORDERED: ONDANSETRON ODT 4 MG TAB.RAPDIS. PO ONE (14:45)
[2021-05-16 16:18] LABS: INFLUENZA A PATIENT NEGATIVE (NEGATIVE); INFLUENZA B PATIENT NEGATIVE (NEGATIVE)
[2021-05-16] MEDS ORDERED: ONDA4TAB7 PO (16:57)
--- NOTE | 2021-05-16 16:57 | PHYS DOC ---
Past Medical History Past Medical History: No Pertinent History (RENATO PANDA APRN) Past Surgical History: No Surgical History (RENATO PANDA APRN) Smoking Status: Never Smoker Alcohol Use: None Drug Use: None (RENATO PANDA APRN) General Adult EDM: Chief Complaint: FLU SYMPTOM HPI: HPI: Patient is a 35 year old female presents with nausea and vomiting since 3 AM. Patient states that she woke up and started puking and having diarrhea and was unable to get off the floor. Patient reports she called EMS due to weakness and vomiting. Denies take anything prior to arrival for symptoms. Denies abdominal pain denies cough, shortness of breath, chest pain. Denies fevers. Patient been fully vaccinated for COVID-19 denies medical history. (RENATO PANDA APRN) Review of Systems: Review of Systems: ROS At least 10 ROS systems have been reviewed and are negative except as documented in the HPI. General: Negative except as outlined in HPI above. Skin: Negative except as outlined in HPI above. HEENT: Negative except as outlined in HPI above. Neck: Negative except as outlined in HPI above. Respiratory: Negative except as outlined in HPI above.. Cardiovascular: Negative except as outlined in HPI above. Abdomen: Negative except as outlined in HPI above. : Negative except as outlined in HPI above. Back/MSK: Negative except as outlined in HPI above. Neuro: Negative except as outlined in HPI above. Psych: Negative except as outlined in HPI above. (RENATO PANDA APRN) Heart Score: C/O Chest Pain: No Risk Factors: Risk Factors: DM, Current or recent (<one month) smoker, HTN, HLP, family history of CAD, obesity. Risk Scores: Score 0 - 3: 2.5% MACE over next 6 weeks - Discharge Home Score 4 - 6: 20.3% MACE over next 6 weeks - Admit for Clinical Observation Score 7 - 10: 72.7% MACE over next 6 weeks - Early Invasive Strategies (RENATO PANDA APRN) Current Medications: Current Medications Medications (Trade) Dose Ordered Sig/Darline Start Time Stop Time Status Last Admin Dose Admin Ondansetron HCl (Zofran Odt) 4 mg 1X ONCE 05/16/21 14:45 05/16/21 14:46 DC 05/16/21 14:45 4 MG (RENATO PANDA APRN) Allergies: Allergies: Allergies Coded Allergies Type Severity Reaction Last Updated Verified oxycodone Adverse Reaction Intermediate Possible seizure 05/16/21 Yes (RENATO PANDA APRN) Physical Exam: PE: Constitutional: Well developed, well nourished, no acute distress, non-toxic appearance. [] HENT: Normocephalic, atraumatic, bilateral external ears normal, oropharynx moist, no oral exudates, nose normal. [] Eyes: PERRLA, EOMI, conjunctiva normal, no discharge. [] Neck: Normal range of motion, no tenderness, supple, no stridor. [] Cardiovascular:Heart rate regular rhythm, no murmur [] Lungs & Thorax: Bilateral breath sounds clear to auscultation [] Abdomen: Bowel sounds normal, soft, no tenderness, no masses, no pulsatile masses. [] Skin: Warm, dry, no erythema, no rash. [] Back: No tenderness, no CVA tenderness. [] Extremities: No tenderness, no cyanosis, no clubbing, ROM intact, no edema. [] Neurologic: Alert and oriented X 3, normal motor function, normal sensory function, no focal deficits noted. [] Psychologic: Affect normal, judgement normal, mood normal. [] (RENATO PANDA APRN) Current Patient Data: Labs: Laboratory Tests Test 05/16/21 14:10 Influenza Type A Antigen Negative (NEGATIVE) Influenza Type B Antigen Negative (NEGATIVE) SARS-CoV-2 Antigen (Rapid) Negative (NEGATIVE) Vital Signs: Vital Signs Date Time Temp Pulse Resp B/P (MAP) Pulse Ox O2 Delivery O2 Flow Rate FiO2 05/16/21 13:48 98.3 110 20 157/89 (111) 100 Room Air 98.3 (RENATO PANDA APRN) EKG: EKG: [] (RENATO PANDA APRN) Radiology/Procedures: Radiology/Procedures: [] (RENATO PANDA APRN) Course & Med Decision Making: Course & Med Decision Making Pertinent Labs and Imaging studies reviewed. (See chart for details) [] 35-year-old female presents with nausea and vomiting. Afebrile. Hemodynamically stable. Patient given Zofran to treat nausea. Patient swabbed for Covid and influenza. Covid and influenza swab are both negative. Patient reports that symptoms have improved since the medication. Patient sent home with medication for nausea. Discussed Tylenol and ibuprofen f or fevers. Patient is hemodynamically stable upon disposition. Discussed return precautions in length with patient. Patient verbalizes understanding of discharge instructions. (RENATO PANDA APRN) Course & Med Decision Making I was the Attending physician on the above date of service of this patient. This patient was evaluated, examined, treated, and dispositioned from the emergency department by the mid-level practitioner. Although I was working at the time , no assistance was requested. Electronically signed, Antonia Perez DO (ANTONIA PEREZ DO) Heladio Disclaimer: Heladio Disclaimer: This electronic medical record was generated, in whole or in part, using a voice recognition dictation system. (RENATO PANDA APRN) Departure Departure Impression: Primary Impression: Nausea & vomiting Qualified Codes: R11.2 - Nausea with vomiting, unspecified Disposition: HOME / SELF CARE / HOMELESS Condition: STABLE Referrals: NO PCP (PCP) Patient Instructions: Nausea and Vomiting, [id number] Additional Instructions: You were seen in the emergency room for nausea and vomiting. Your symptoms are treated with Zofran which improved your nausea. You are tested for Covid and influenza which were both negative. I am sending you home with nausea medication. If your symptoms do not improve follow-up with your PCP. Return to the emergency room with worsening symptoms or concerns. EMERGENCY DEPARTMENT GENERAL DISCHARGE INSTRUCTIONS Thank you for coming to [facility] Emergency Department (ED) today and trusting us with you care. We trust that you had a positive experience in our Emergency Department. If you wish to speak to the department management, you may call the Director at [phone]. YOUR FOLLOW UP INSTRUCTIONS ARE FOLLOWS: 1. Do you have a private Doctor? If you do not have a private doctor, please ask for a resource list of physicians or clinics that may be able to assist you with follow up care. 2. The Emergency Physicain has interpreted your x-rays. The X-Ray specialist will also review them. If there is a change in the findings, you will be notified in 48 hours when at all possible. 3. A lab test or culture has been done, your results will be reviewed and you will be notified if you need a change in treatment. ADDITIONAL INSTRUCTIONS AND INFORMATION: 1. Your care today has been supervised by a physician who is specially trained in emergency care. Many problems require more than one evaluation for a complete diagnosis and treatment. We recommend that you schedule your follow up appointment as recommended to ensure complete treatment of you illness or injury. If you are unable to obtain follow up care and continue to have a problem, or if your condition worsens, we recommend that you return to the ED. 2. We are not able to safely determine your condition over the phone nor are we able to give sound medical advice over the phone. For these safety reasons, if you call for medical advice we will ask you to come to the ED for further evaluation. 3. If you have any questions regarding these discharge instructions please call the ED at [phone]. SAFETY INFORMATION: In the interest of safety, wellness, and injury prevention; we encourage you to wear your sealbelt, if you smoke; quite smoking, and we encourage family to use a protective helmet for bicycling and other sporting events that present an increased risk for head injury. IF YOUR SYMPTOMS WORSEN OR NEW SYMPTOMS DEVELOP, OR YOU HAVE CONCERNS ABOUT YOUR CONDITION; OR IF YOUR CONDITION WORSENS WHILE YOU ARE WAITING FOR YOUR FOLLOW UP APPOINTMENT; EITHER CONTACT YOUR PRIMARY CARE DOCTOR, THE PHYSICIAN WHOSE NAME AND NUMBER YOU WERE GIVEN, OR RETURN TO THE ED IMMEDIATELY. Scripts Ondansetron Hcl (ZOFRAN) 4 Mg Tablet 1 TAB PO Q6HRS for nausea for 5 Days, #20 TAB Prov: RENATO PANDA APRN 05/16/21 RENATO PANDA APRN May 16, 2021 16:57 ANTONIA PEREZ DO May 17, 2021 07:22
[2021-05-16 17:53] VITALS: BP 160/106
== END 2021-05-16 17:58 | disposition home or self-care (01) ==
LOC: ER 11:54
DX: R11.2 Nausea with vomiting, unspecified (principal); R19.7 Diarrhea, unspecified; R53.1 Weakness; Z88.5 Allergy status to narcotic agent
CPT/HCPCS: 87426; 87804; 99285; U0003; U0005